=== PATIENT | male | born 1955 | race African-American/Black ===

== ENCOUNTER 2018-05-31 11:57 | Emergency (ER) | payer MEDICARE ==
--- NOTE | 2018-05-31 12:12 | ER Document Report ---
ED Medical Screen (RME) - General Chief Complaint: Chest Congestion Stated Complaint: COUGH/HEADACHE Time Seen by Provider: 05/31/18 12:11 Mode of Arrival: Ambulatory Information source: Patient TRAVEL OUTSIDE OF THE [place] IN LAST 30 DAYS: No - HPI Patient complains to provider of: cough; congestion Onset: Other - pt with c/o cough and congestion for the past few days. Did not get flu shot this yr. - Related Data Allergies/Adverse Reactions: No Known Allergies Allergy (Verified 05/31/18 11:58) Physical Exam - Vital signs Vitals: Temp Pulse Resp BP Pulse Ox 98.6 F 93 16 127/87 H 96 05/31/18 12:02 05/31/18 12:02 05/31/18 12:02 05/31/18 12:02 05/31/18 12:02 Course - Vital Signs Vital signs: Temp Pulse Resp BP Pulse Ox 98.6 F 93 16 127/87 H 96 05/31/18 12:02 05/31/18 12:02 05/31/18 12:02 05/31/18 12:02 05/31/18 12:02
[2018-05-31 12:47] LABS: ABSOLUTE BASOPHILS # (AUTO) 0.1 10^3/uL (0.0-0.2); ABSOLUTE EOSINOPHILS # (AUTO) 0.1 10^3/uL (0.0-0.6); ABSOLUTE LYMPHOCYTES (AUTO) 1.7 10^3/uL (0.5-4.7); ABSOLUTE NEUT (AUTO) 4.7 10^3/uL (1.7-8.2); BASOPHILS % (AUTO) 0.7 % (0-2); EOSINOPHILS % (AUTO) 1.3 % (0-6); HEMATOCRIT 47.9 % (37.9-51.0); HEMOGLOBIN 16.5 g/dL (13.5-17.0); LYMPHOCYTES % (AUTO) 22.9 % (13-45); MEAN CORPUSCULAR HGB CONC 34.4 g/dL (32.0-36.0); MEAN CORPUSCULAR VOLUME 87 fl (80-97); MONOCYTES % (AUTO) 13.7 % (3-13); PLATELET COUNT 375 10^3/uL (150-450); RED BLOOD COUNT 5.49 10^6/uL (4.35-5.55); RED CELL DISTRIBUTION WIDTH 14.2 % (11.5-14.0); SEGMENTED NEUTROPHILS % (AUTO) 61.4 % (42-78); TOTAL CELLS COUNTED % (AUTO) 100 %; WHITE BLOOD COUNT 7.6 10^3/uL (4.0-10.5)
--- NOTE | 2018-05-31 12:47 | RADIOLOGY REPORT (SQ) ---
EXAM DESCRIPTION: CHEST 2 VIEWS COMPLETED DATE/TIME: 05/31/2018 12:37 pm REASON FOR STUDY: cough COMPARISON: None. EXAM PARAMETERS: NUMBER OF VIEWS: two views TECHNIQUE: Digital Frontal and Lateral radiographic views of the chest acquired. RADIATION DOSE: NA LIMITATIONS: none FINDINGS: LUNGS AND PLEURA: Postsurgical changes in the right lung. Left lung is clear. MEDIASTINUM AND HILAR STRUCTURES: No masses or contour abnormalities. HEART AND VASCULAR STRUCTURES: Heart normal size. No evidence for failure. BONES: No acute findings. HARDWARE: None in the chest. OTHER: No other significant finding. IMPRESSION: NO ACUTE RADIOGRAPHIC FINDING IN THE CHEST. TECHNICAL DOCUMENTATION: JOB ID: [id number] 2020 [employer]- All Rights Reserved Reading location - IP/workstation name: [email or web address]
[2018-05-31 12:54] LABS: APPEARANCE,URINE CLEAR; BILIRUBIN,URINE NEGATIVE (NEGATIVE); COLOR,URINE YELLOW; GLUCOSE, URINE >=500 mg/dL (NEGATIVE); KETONES,URINE 20 mg/dL (NEGATIVE); LEUKOCYTE ESTERASE,URINE NEGATIVE (NEGATIVE); NITRITE,URINE NEGATIVE (NEGATIVE); PROTEIN,URINE 30 mg/dL (NEGATIVE); URINE SPECIFIC GRAVITY 1.035; UROBILINOGEN,URINE NEGATIVE mg/dL (<2.0)
[2018-05-31 13:03] LABS: ALANINE AMINOTRANSFERASE 44 U/L (21-72); ALBUMIN 4.4 g/dL (3.5-5.0); ALKALINE PHOSPHATASE 159 U/L (38-126); ANION GAP 15 (5-19); ASPARTATE AMINO TRANSFERASE 41 U/L (17-59); BILIRUBIN,DIRECT 0.3 mg/dL (0.0-0.4); BILIRUBIN,TOTAL 0.8 mg/dL (0.2-1.3); BLOOD UREA NITROGEN 13 mg/dL (7-20); CALCIUM 10.1 mg/dL (8.4-10.2); CARBON DIOXIDE 25 mmol/L (22-30); CHLORIDE 97 mmol/L (98-107); SODIUM 136.6 mmol/L (137-145); TOTAL PROTEIN 7.7 g/dL (6.3-8.2)
[2018-05-31 13:05] LABS: A TYPE INFLUENZA AG NEGATIVE (NEGATIVE)
[2018-05-31 13:06] LABS: B INFLUENZA AG NEGATIVE (NEGATIVE)
[2018-05-31 13:12] LABS: GLUCOSE 414 mg/dL (75-110)
--- NOTE | 2018-05-31 13:50 | ER Document Report ---
ED General <AMARAFILOMENA - Last Filed: 05/31/18 14:04> - General Mode of Arrival: Ambulatory TRAVEL OUTSIDE OF THE [place] IN LAST 30 DAYS: No <MANUELA PRITCHARD - Last Filed: 05/31/18 16:54> - General Chief Complaint: Chest Congestion Stated Complaint: COUGH/HEADACHE Time Seen by Provider: 05/31/18 12:11 Notes: 63-year-old male who presents to the emergency department today with complaints of a cold for the last few weeks with increasing sputum production x3 days ago. Patient has a history of lung cancer that is in remission. Patient has had associated shortness of breath and headache. (MANUELA PRITCHARD) - Related Data Allergies/Adverse Reactions: No Known Allergies Allergy (Verified 05/31/18 11:58) Past Medical History - General Information source: Patient - Social History Smoking Status: Former Smoker Cigarette use (# per day): No Frequency of alcohol use: None Drug Abuse: None Lives with: Family Family History: Reviewed & Not Pertinent Patient has suicidal ideation: No Patient has homicidal ideation: No Malignancy Medical History: Reports Hx Lung Cancer Surgical Hx: Negative <MANUELA PRITCHARD - Last Filed: 05/31/18 16:54> Review of Systems - Review of Systems Constitutional: No symptoms reported EENT: See HPI, Nose congestion Cardiovascular: No symptoms reported Respiratory: See HPI, Cough, Short of breath Gastrointestinal: No symptoms reported Genitourinary: No symptoms reported Male Genitourinary: No symptoms reported Musculoskeletal: No symptoms reported Skin: No symptoms reported Hematologic/Lymphatic: No symptoms reported Neurological/Psychological: See HPI, Headaches -: Yes All other systems reviewed and negative <MANUELA PRITCHARD - Last Filed: 05/31/18 16:54> Physical Exam <MANUELA PRITCHARD - Last Filed: 05/31/18 16:54> - Vital signs Vitals: Temp Pulse Resp BP Pulse Ox 98.6 F 93 16 127/87 H 96 05/31/18 12:02 05/31/18 12:02 05/31/18 12:02 05/31/18 12:02 05/31/18 12:02 - Notes Notes: Physical Exam: General: Alert, appears well. HEENT: Normocephalic. Atraumatic. PERRL. Extraocular movements intact. Oropharynx clear. Maxillary sinus tenderness with palpation. Neck: Supple. Non-tender. Respiratory: No respiratory distress. Rhonchi and wheezing bilaterally with forced cough. Cardiovascular: Regular rate and rhythm. Abdominal: Normal Inspection. Non-tender. No distension. Normal Bowel Sounds. Back: Non-tender. No deformity or step off. Extremities: Moves all four extremities. Upper extremities: Normal inspection. Normal ROM. Lower extremities: Normal inspection. No edema. Normal ROM. Neurological: Normal cognition. AAOx4. Normal speech. Psychological: Normal affect. Normal Mood. Skin: Warm. Dry. Normal color. (MANUELA PRITCHARD) Course - Laboratory Result Diagrams: 05/31/18 12:22 05/31/18 12:22 - Diagnostic Test Radiology reviewed: Image reviewed, Reports reviewed - Chest x-ray does not show any acute infiltrate or other changes. <FILOMENA MALONEY - Last Filed: 05/31/18 14:04> - Laboratory Result Diagrams: 05/31/18 12:22 05/31/18 12:22 <MANUELA PRITCHARD - Last Filed: 05/31/18 16:54> - Re-evaluation Re-evalutation: 05/31/18 13:52 Patient has had bronchitis symptoms for 2 weeks, he now has brownish red sputum with some blood clots. He also has severe maxillary sinus tenderness with brownish nasal discharge. He is also found to be a new onset diabetic. For t hese reasons he will be put on doxycycline to cover his acute sinusitis and bronchitis infections. (FILOMENA MALONEY) - Vital Signs Vital signs: Temp Pulse Resp BP Pulse Ox 99.3 F 104 H 16 133/94 H 97 05/31/18 14:25 05/31/18 14:25 05/31/18 14:25 05/31/18 14:25 05/31/18 14:25 - Laboratory Laboratory results interpreted by mo: 05/31/18 05/31/18 05/31/18 12:22 12:22 12:22 RDW 14.2 H Monocytes % 13.7 H Sodium 136.6 L Chloride 97 L Glucose 414 H* Alkaline Phosphatase 159 H Urine Protein 30 H Urine Glucose (UA) >=500 H Urine Ketones 20 H Urine Blood SMALL H Discharge <FILOMENA MALONEY - Last Filed: 05/31/18 14:04> <MANUELA PRITCHARD - Last Filed: 05/31/18 16:54> - Discharge Clinical Impression: Bronchitis, New onset type 2 diabetes mellitus Sinusitis Qualifiers: Sinusitis location: maxillary Chronicity: acute Recurrence: non-recurrent Qualified Code(s): J01.00 - Acute maxillary sinusitis, unspecified Condition: Stable Disposition: HOME, SELF-CARE Additional Instructions: Sinusitis: You have sinusitis, an infection of the sinus cavities of the face. The sinuses are air-filled chambers which open into the inside of the nose. Bacteria and pus fill a sinus, causing pain, drainage, and fever. Sinusitis is treated with antibiotics. Often, expectorants (to thin the sinus mucous) or decongestants (to reduce swelling) are prescribed as well. Healing requires seven to 10 days. Avoid chemical fumes, pollens, dusts, and smoke (especially cigarette smoke). Keep the air humidified in your bedroom and work area and take plenty of liquids by mouth. This condition can be serious if the infection spreads. If your symptoms worsen, or if you develop severe headache, high fever, stiff neck, or a rash, you must call the doctor or return for re-evaluation. Bronchitis: You have acute bronchitis. This disease is an infection or inflammation of the air passageways in your lungs. Symptoms usually include cough, low grade fever, shortness of breath, and wheezing. The cough usually persists for a couple of weeks. Most cases of bronchitis get better without antibiotics. We prescribe a ntibiotics when we believe bacteria are damaging your airways, or if there's high risk the bronchitis will worsen into pneumonia. Increase your fluid intake. A cool mist humidifier may make your lungs more comfortable. An expectorant (cough medicine that loosens phlegm) can help. If you smoke, STOP!!! Recovery from bronchitis can be somewhat slow, but you should see improvement within a day or two. Repeated episodes of bronchitis may result in lung damage -- for example, chronic bronchitis, recurrent pneumonias, or emphysema. Call the doctor if you develop increasing fever, shortness of breath, chest pain, bloody sputum, or otherwise worsen. If you have not improved at all after several days, contact the physician. Diabetes: You have an abnormally high blood sugar, this is called type II diabetes. You should follow-up with a local medical doctor for further evaluation. Uncontrolled high blood sugar leads to early heart disease, strokes, nerve damage, eye damage, and kidney damage. All diabetics should follow a diet designed to control the blood sugar. Home testing of blood sugars is required. Diabetic teaching is available to help you monitor the blood sugar. Call the physician if there is faintness, excess sleepiness, or very rapid breathing. If hypoglycemia (LOW blood sugar) develops, symptoms are shakiness, weakness, sweating, and confusion. In this case, you should eat or drink something with sugar at once. Take the medications as prescribed. Try Robitussin-DM to help control your cough. Drink plenty of fluids and get plenty of rest. Follow-up with a primary care provider this week to start your diabetes management. RETURN TO THE EMERGENCY ROOM IF ANY NEW OR WORSENING SYMPTOMS. Prescriptions: Doxycycline Hyclate 100 mg PO BID #20 tablet. Metformin HCl 850 mg PO BID #60 tablet Scribe Attestation: 05/31/18 13:53 I personally performed the services described in the documentation, reviewed and edited the documentation which was dictated to the scribe in my presence, and it accurately records my words and actions. (FILOMENA MALONEY) Scribe Documentation - Scribe Written by Georgi:: Georgi Samson, 05/31/2017 [id number] acting as scribe for :: Amara <MANUELA PRITCHARD - Last Filed: 05/31/18 16:54>
[2018-05-31 14:46] VITALS: BP 133/94
== END 2018-05-31 14:30 | disposition home or self-care (01) ==
LOC: ER 11:57
DX: J40 Bronchitis, not specified as acute or chronic (principal); J01.00 Acute maxillary sinusitis, unspecified; E11.9 Type 2 diabetes mellitus without complications; R06.02 Shortness of breath; R51 Headache; Z87.891 Personal history of nicotine dependence; Z85.118 Personal history of other malignant neoplasm of bronchus and lung
CPT/HCPCS: 36415; 71046; 80053; 81001; 85025; 87804; 99283